=== PATIENT | male | born 1965 | race Caucasian/White ===

== ENCOUNTER 2024-12-24 04:45 | Emergency (ER) | payer SELFPAY ==
[~2024-12-24] VITALS: Ht 175.3 cm; Wt 102.3 kg
[2024-12-24] MEDS: LIDOCAINE 2% MDV 20 ML VIAL SC ONE (05:20)
[2024-12-24] MEDS ORDERED: DOXY-441 PO (06:06)
[2024-12-24 06:13] VITALS: BP 148/86; TEMP 97; O2SAT 99
[2024-12-24] MEDS: DOXYCYCLINE HYCLATE 100 MG TABLET PO ONE (06:18)
== END 2024-12-24 06:28 | disposition home or self-care (01) ==
LOC: M ED 04:45
DX: S61.241A Puncture wound with foreign body of left index finger without damage to nail, initial encounter (principal); W45.8XXA Other foreign body or object entering through skin, initial encounter; Y92.9 Unspecified place or not applicable; Y93.9 Activity, unspecified; Y99.9 Unspecified external cause status; F17.200 Nicotine dependence, unspecified, uncomplicated